=== PATIENT | male | born 1985 | race Two or more races ===

== ENCOUNTER 2019-06-27 19:21 | Emergency (ER) | payer BC ==
[~2019-06-27] VITALS: Ht 160 cm; Wt 95.7 kg
[2019-06-27 20:02] VITALS: BP 123/71
[2019-06-27] MEDS ORDERED: BACITRACIN/POLYMYXIN B 15 GM TUBE TP STA (20:27)
[2019-06-27] MEDS ORDERED: HYDROCODONE/APAP 5/325MG 1 EACH TABLET PO ONE (20:30)
[2019-06-27] MEDS ORDERED: HYDROCODONE/APAP 5/325MG 1 EACH TABLET ONE (20:34)
== END 2019-06-27 21:13 | disposition home or self-care (01) ==
LOC: ER 19:24
DX: T23.212A Burn of second degree of left thumb (nail), initial encounter (principal); T23.222A Burn of second degree of single left finger (nail) except thumb, initial encounter; T23.132A Burn of first degree of multiple left fingers (nail), not including thumb, initial encounter; Z98.890 Other specified postprocedural states; X19.XXXA Contact with other heat and hot substances, initial encounter; Y93.G2 Activity, grilling and smoking food; Y92.89 Other specified places as the place of occurrence of the external cause; Y99.8 Other external cause status